=== PATIENT | male | born 1935 | race Caucasian/White ===

== ENCOUNTER 2016-12-04 15:17 | Inpatient (IN) ==
--- NOTE | 2016-12-04 16:16 | Diag Imaging Result Document ---
PROCEDURE NAME: CHEST-2 VIEWS - 12/04/2016 CHEST X-RAY 2 VIEWS: COMPARISON: 07/29/2016. FINDINGS: There is a significant alveolar infiltrate in the left lower lobe. Heart size is normal. No pneumothorax or pleural effusion. IMPRESSION: Left lower lobe infiltrate/pneumonia. Findings were discussed with Cassie Celis by telephone.
[2016-12-04] MEDS ORDERED: PREVNAR 13 IM ONE (17:50)
[2016-12-04] MEDS ORDERED: PNEUMOVAX 23 IM ONE (17:55)
[2016-12-04] MEDS ORDERED: TYLENOL PO PRN (17:57)
--- NOTE | 2016-12-04 18:19 | HISTORY AND PHYSICAL ---
HISTORY OF PRESENT ILLNESS: Mr. Clark has a past medical history apparently of a little dementia. He has an abdominal aortic aneurysm which they have been following. A former patient Dr. Manrique's. He has osteoarthritis. He has been in his usual good state of health until about a week ago, maybe 2 weeks ago, and they have noticed that he has had increased work of breathing, increased coughing, and he has not been eating or drinking much. His is going through therapy for B-cell lymphoma and that has been pretty hard on him. ALLERGIES: No known drug allergies. FAMILY HISTORY: He has a large family, 1 of 11 children. History of diabetes. History of coronary artery disease. History of kidney cancer and history of parkinsonism I think in a couple members. SOCIAL HISTORY: Occasional wine. Quit smoking about 15 years ago. REVIEW OF SYSTEMS: General: No weight gain or loss. No fever that they know of, but the family feels like he has lost some weight. HEENT: Unremarkable. Respiratory: Increased work of breathing in the last 2 weeks. Feels like a little increased dyspnea on exertion. He does not describe any orthopnea or paroxysmal nocturnal dyspnea. Cardiovascular: No chest pain or tachy palpitation. GI/: No gross hematuria or dysuria. PHYSICAL EXAMINATION: VITAL SIGNS: Temperature 98.5 degrees, pulse 105, respirations 18, blood pressure 122/68. HEENT: Pupils equal and round. LUNGS: Clear in all lung melendrez. CARDIOVASCULAR: Regular rate without murmur or S3. ABDOMEN: Soft. SKIN: Warm and dry. IMAGING STUDIES: Chest x-ray, left lower lobe infiltrate pneumonia. ASSESSMENT AND PLAN: 1. Left lower lobe pneumonia. He presents with some underlying COPD. Quit smoking about 15 years ago. Plan to admit. We will give him some bronchodilators and supplemental O2, probably some IV Solu-Medrol. I will put him on Rocephin 1 g daily. 2. Appears to have a little bit of volume contraction. We will check his lab work. 3. History of abdominal aortic aneurysm so we will check an ultrasound and see, he has not had that followed up in a while. 4. Some cognitive decline, early dementia. 5. He has had a history of cataracts. 6. Apparently has had a gastrectomy years ago for ulcer. cc: Moises Yarbrough MD
[2016-12-04] MEDS: SOLU-MEDROL IV SCH (18:42)
[2016-12-04] MEDS: NS 1,000 ML IV SCH (18:42)
[2016-12-04] MEDS: ROCEPHIN 1 GM/NS 50 ML IV SCH (18:43)
[2016-12-04] MEDS: DUONEB (A & A) INH PRN ×2 (20:20→23:20)
[2016-12-04] MEDS: VITAMIN B-12 PO SCH (21:25)
[2016-12-04] MEDS: LIPITOR PO SCH (21:26)
[2016-12-04] MEDS: LOTENSIN PO SCH (21:26)
[2016-12-04] MEDS: RAZADYNE ER PO SCH (22:03)
[2016-12-05] MEDS: SOLU-MEDROL IV SCH ×3 (02:38→17:59)
[2016-12-05] MEDS: DUONEB (A & A) INH PRN ×6 (03:55→23:07)
[2016-12-05] MEDS: NS 1,000 ML IV SCH ×2 (05:36→18:00)
[2016-12-05 06:31] LABS: BASO% 0.1 % (0.0-0.8); HEMOGLOBIN 10.9 g/dL (14.0-18.0); IMM GRAN# 0.05 X1000 (0.0-0.04); IMM GRAN% 0.6 % (0.0-0.5); LYMPH# 0.33 X1000 (1.2-3.4); LYMPH% 3.7 % (20.5-51.1); MANUAL DIFF NEEDED? YES; MCH 31.4 PG (27-31); MCHC 32.1 g/dL (33-37); MONO# 0.26 X1000 (0.11-0.59); MONO% 2.9 % (1.7-9.3); MPV 9.7 FL (7.4-10.4); NEUT% 92.7 % (42.2-75.2); PLT 334 X1000 (130-400); RBC 3.47 XMIL (4.7-6.1)
[2016-12-05 06:58] LABS: MONO 4 % (1-9)
[2016-12-05 07:05] LABS: AGAP 13; ALBUMIN 2.8 g/dL (3.5-5.0); ALKALINE PHOSPHATASE 84 U/L (32-122); BUN 19 mg/dL (8-22); CALCIUM 8.6 mg/dL (8.8-10.2); CHLORIDE 103 mmol/L (98-107); COSMO 290; GOT 13 U/L (10-34); GPT 8 U/L (10-44); POTASSIUM 4.1 mmol/L (3.5-5.1); SODIUM 140 mmol/L (136-145); TCO2 24 mmol/L (25-35); TOTAL BILIRUBIN 0.54 mg/dL (0.20-1.00); TOTAL PROTEIN 6.3 g/dL (6.3-8.3)
[2016-12-05] MEDS: FOLIC ACID PO SCH (08:28)
--- NOTE | 2016-12-05 09:48 | Diag Imaging Result Document ---
PROCEDURE NAME: CHEST-2 VIEWS - 12/05/2016 TWO VIEWS OF THE CHEST: FINDINGS: There is COPD. There is ill-defined opacity present in the lingula. This is somewhat worse than on 12/04/2016. The abnormality was not present on 07/29/2016. IMPRESSION: Slight worsening of pneumonia in the left upper lobe.
--- NOTE | 2016-12-05 12:37 | PROGRESS NOTE ---
DATE: 12/05/2016 Mr. Clark feels better. He was sitting up reading the newspaper. His sister states she can see good improvement, breathing comfortably, ate most of his breakfast and about snf through his lunch when I saw him. OBJECTIVE: Vital Signs: Afebrile, pulse 78, respirations 14, blood pressure 127/55, pupils are equal, round, CVP less than 6 cm. Lungs: Clear anterolateral. Cardiovascular: Regular rate without murmur or S3. Abdomen: Soft. Skin is warm and dry. Good urine output. LABS: Were reviewed. White count 8950, hematocrit 34, platelet count 334,000, sodium 140, potassium 4.1, chloride 103, bicarb 24, BUN 19, creatinine 0.9. Liver enzymes: AST was 13, ALT was 8, albumin 2.8. Chest x-ray from this morning, slight worsening of pneumonia on the left upper lobe. ASSESSMENT AND PLAN: 1. Underlying COPD exacerbation. COPD with left lower lobe pneumonia. Former smoker. Continue present regimen, Rocephin 1 g daily, bronchodilator, supplemental O2, and IV Solu-Medrol. 2. Volume contraction that seems to have responded with IV fluids. Continue present IV fluids. 3. Abdominal aortic aneurysm. We will check an ultrasound before he leaves just to follow up. He has not had follow up on this in years. It is an abdominal aortic aneurysm formerly followed by Dr. Manrique. 4. Cognitive decline, early dementia. Seems to be much brighter today.
[2016-12-05] MEDS: ROCEPHIN 1 GM/NS 50 ML IV SCH (18:01)
[2016-12-05] MEDS: VITAMIN B-12 PO SCH (20:03)
[2016-12-05] MEDS: LOTENSIN PO SCH (20:03)
[2016-12-05] MEDS: RAZADYNE ER PO SCH (20:03)
[2016-12-05] MEDS: LIPITOR PO SCH (20:03)
[2016-12-06] MEDS: SOLU-MEDROL IV SCH ×3 (02:55→17:50)
[2016-12-06] MEDS: DUONEB (A & A) INH PRN ×5 (03:35→19:55)
[2016-12-06] MEDS: NS 1,000 ML IV SCH ×2 (04:52→14:45)
[2016-12-06] MEDS: FOLIC ACID PO SCH (09:50)
--- NOTE | 2016-12-06 14:19 | PROGRESS NOTE ---
DATE: 12/06/2016 Mr. Clark feels much better. He is eating his breakfast, ate just about all of it. Breathing comfortably, a lot stronger and no sign of distress. EXAM: Vital Signs: Stable, afebrile. Lungs: Clear anterolateral. Cardiovascular: Regular rhythm and rate without murmurs or S3. Abdomen: Soft. Skin: Warm and dry. ASSESSMENT AND PLAN: 1. Pneumonia, underlying COPD. His air and gas exchange looked good. Feels much better. Afebrile. Continue his bronchodilators and his antibiotics. 2. Nutrition looks good. Good p.o. intake. 3. General weakness. I think that is improved as well. cc: Moises Yarbrough MD
[2016-12-06] MEDS: ROCEPHIN 1 GM/NS 50 ML IV SCH (17:50)
[2016-12-06] MEDS: LIPITOR PO SCH (20:05)
[2016-12-06] MEDS: RAZADYNE ER PO SCH (20:05)
[2016-12-06] MEDS: VITAMIN B-12 PO SCH (20:05)
[2016-12-07] MEDS: LOTENSIN PO SCH (00:29)
[2016-12-07] MEDS: NS 1,000 ML IV SCH ×2 (00:31→07:08)
[2016-12-07] MEDS: SOLU-MEDROL IV SCH ×2 (03:04→10:07)
[2016-12-07] MEDS: DUONEB (A & A) INH PRN ×2 (03:41→08:16)
[2016-12-07 03:59] VITALS: BP 158/82
[2016-12-07] MEDS ORDERED: ATIVAN IV PRN (08:25)
[2016-12-07] MEDS: FOLIC ACID PO SCH (10:07)
--- NOTE | 2016-12-07 10:51 | DISCHARGE SUMMARY ---
ADMISSION DATE: 12/04/2016 DISCHARGE DATE: 12/07/2016 HISTORY OF PRESENT ILLNESS: Mr. Johnson has a medical history of underlying dementia, abdominal aortic aneurysm which we have been following. Former patient of Dr. Manrique. He has a history of osteoarthritis. Had been in usual good state of health until about a week prior to presentation, maybe 2 weeks ago. Noticed increased work of breathing, increased cough. Not eating or drinking much. His is going through therapy right now for B-cell lymphoma. That has been pretty hard on him. ALLERGIES: No known drug allergies. FAMILY HISTORY: Fairly unremarkable. HOSPITAL COURSE: 1. Admitted him with left lower lobe pneumonia and exacerbation of COPD. Received IV antibiotics, Rocephin 1 g daily, bronchodilators, and some IV Solu-Medrol. He seemed to show steady improvement and felt he was ready go home on 12/07/2016. We will let him go home on PO Levaquin for another 5 days. 2. A little bit of volume contraction and he was a little dry. IV fluids seemed to help him quite a bit. Next day, he was eating. Eating well and comfortable. 3. History of abdominal aortic aneurysm which he just following, set him up for an ultrasound as an outpatient. 4. Cognitive decline and dementia. He did have some sundowning and some confusion at night. 5. History of cataracts. 6. Status post gastrectomy years ago. [place] he was ready to go home on 12/07/2016. DISCHARGE MEDICATIONS: He will stop his Solu-Medrol. Ativan 0.5 mg q.4 will discontinue. He will continue his Razadyne 25 mg at bedtime, folic acid 1 mg daily, B12 2500 mcg at bedtime, Lotensin 10 mg at bedtime, Lipitor 20 mg at bedtime. FOLLOWUP: Follow up with Luz Elena Celis in a couple of weeks. cc: Moises Yarbrough MD
== END 2016-12-07 12:36 | disposition home or self-care (01) ==
LOC: RAD 15:17 → DIRADM 16:13 → 4N 16:37
PROVIDERS: ADMIT Emergency Medicine; ATTEND Emergency Medicine

== ENCOUNTER 2017-01-31 21:20 | Inpatient (IN) ==
[2017-01-31 22:16] LABS: BASO% 0.2 % (0.0-0.8); EOS# 0.09 X1000 (0.0-0.7); EOS% 0.3 % (0.0-10.0); HEMATOCRIT 40.4 % (42.0-52.0); HEMOGLOBIN 13.1 g/dL (14.0-18.0); IMM GRAN# 0.64 X1000 (0.0-0.04); IMM GRAN% 1.8 % (0.0-0.5); LYMPH% 3.4 % (20.5-51.1); MANUAL DIFF NEEDED? YES; MCH 31.9 PG (27-31); MCHC 32.4 g/dL (33-37); MCV 98.3 FL (81-99); MONO# 2.63 X1000 (0.11-0.59); MONO% 7.3 % (1.7-9.3); MPV 9.3 FL (7.4-10.4); PLT 412 X1000 (130-400); RBC 4.11 XMIL (4.7-6.1)
[2017-01-31 22:22] LABS: ALLEN TEST YES; BE 0.5 mmoll (-3.0-3.0); BLOOD TYPE ARTERIAL; DRAW SITE R BRACHIAL; METHB 1.6 % (0.0-1.5); MODALITY CANNULA; O2(CT) 17.4 mL/dL (15.0-23.0); PCO2(98.6) 37 mmHg (35-45); PO2(98.6) 83 mmHg (60-100); SAMPLE BLOOD; SAO2 98.1 % (95.0-100.0); pH(98.6) 7.43 (7.35-7.45)
[2017-01-31 22:22] LABS: AGAP 17; ALBUMIN 3.3 g/dL (3.5-5.0); ALKALINE PHOSPHATASE 131 U/L (32-122); BUN 16 mg/dL (8-22); CALCIUM 9.3 mg/dL (8.8-10.2); CHLORIDE 101 mmol/L (98-107); CK PROFILE 142 U/L (24-204); COSMO 278; GOT 37 U/L (10-34); GPT 21 U/L (10-44); POTASSIUM 5.1 mmol/L (3.5-5.1); SODIUM 137 mmol/L (136-145); TCO2 19 mmol/L (25-35); TOTAL BILIRUBIN 0.67 mg/dL (0.20-1.00); TOTAL PROTEIN 7.5 g/dL (6.3-8.3)
[2017-01-31 22:23] LABS: INR 1.02; PROTIME 10.7 Seconds (9.2-11.7); PTT 27.3 Seconds (22.0-36.0)
[2017-01-31 22:32] LABS: BANDS 3 % (0-1); LYMPHS 3 % (21-51); MONO 6 % (1-9)
[2017-01-31 23:04] LABS: URINE SOURCE CATH
[2017-01-31 23:06] LABS: BILIRUBIN URINE NEGATIVE (NEGATIVE); BLOOD URINE TRACE (NEGATIVE); COLOR YELLOW; GLUCOSE URINE NEGATIVE (NEGATIVE); LEUKOCYTES URINE NEGATIVE (NEGATIVE); NITRITE URINE NEGATIVE (NEGATIVE); PROTEIN URINE 50 mg/dL (NEGATIVE); TURBIDITY URINE CLEAR (CLEAR); UROBILINOGEN URINE 2 mg/dL (NORMAL)
[2017-01-31 23:16] LABS: UR AMPHETAMINES QUAL NONE DETECTED (NONE DETECT); UR BARBITUATES QUAL NONE DETECTED (NONE DETECT); UR BENZODIAZEPIN QUAL NONE DETECTED (NONE DETECT); UR CANNABINOIDS QUAL NONE DETECTED (NONE DETECT); UR COCAINE QUAL NONE DETECTED (NONE DETECT); UR METHADONE QUAL NONE DETECTED (NONE DETECT); UR OPIATES QUAL NONE DETECTED (NONE DETECT); UR OXYCODONE QUAL NONE DETECTED (NONE DETECT); UR PCP QUAL NONE DETECTED (NONE DETECT)
[2017-01-31 23:18] LABS: UR EPITHELIAL CELLS >10 /HPF (<10); URINE BACTERIA NEGATIVE /HPF; URINE CULTURE NEEDED? YES; URINE MICRO REVIEW NEEDED? YES
[2017-01-31 23:20] LABS: URINE CASTS GRANULAR PRESENT; URINE CRYSTALS NONE SEEN
[2017-01-31] MEDS ORDERED: ROCEPHIN 1 GM/NS 1 GM/50 ML IVPB IV ONE (23:34)
--- NOTE | 2017-01-31 23:35 | PROVIDER DOCUMENTATION ---
HPI-General Adult - General Chief Complaint: Fall Stated Complaint: fall Time Seen by Provider: 01/31/17 21:29 Source: patient Allergies/Adverse Reactions: Patient Allergies Allergy/AdvReac Type Severity Reaction Status Date / Time No Known Allergies Allergy Verified 12/04/16 17:46 Home Medications: Home Medication List Medication Instructions Recorded Confirmed Last Taken Type Atorvastatin Calcium [Lipitor] 20 mg PO HS 12/04/16 12/04/16 12/03/16 History BENAZEpril [Lotensin] 10 mg PO HS 12/04/16 12/04/16 12/03/16 History Cyanocobalamin/Cobamamide [B12 2,500 meq PO HS 12/04/16 12/04/16 Unknown History 5,000 Mcg Microlozenge] Folic Acid 1 mg PO DAILY 12/04/16 12/04/16 12/04/16 History Galantamine HBr [Razadyne ER] 24 mg PO HS 12/04/16 12/04/16 Unknown History Levofloxacin [Levaquin] 500 mg PO DAILY #5 tablet 12/07/16 Unknown Rx - History of Present Illness -Gen Adult Nature of Presenting Problems: Pt is a 81 y/o M c chief complaint of neck pain after a ground level fall today at home. Per pt's , he was standing in a utility closet and fell backwards. Pt has a h/o frequent falls due to dementia. Pt was admitted last month for PNA. Pt's states she was not able to get the pt up and he was complaining of neck and back pain. On arrival, pt is in minimal distress and is pleasantly confused (baseline per family). Review of Systems - Adult - REVIEW OF SYSTEMS - ADULT Constitutional: reports: no symptoms reported. denies: chills, fatique Eyes: reports: no symptoms reported. denies: blurred vision, double vision Ears, Nose, Mouth & Throat: reports: no symptoms reported. denies: ear pain, nose pain Cardiovascular: reports: no symptoms reported. denies: chest pain, orthopnea Respiratory: reports: no symptoms reported. denies: cough, shortness of breath Gastrointestinal: reports: no symptoms reported. denies: abdominal pain, nausea Genitourinary: reports: no symptoms reported. denies: dysuria, frequent UTI's Musculoskeletal: reports: bone pain, back pain, joint pain, joint swelling Integumentary: reports: no symptoms reported. denies: itching, rash Neurological: reports: no symptoms reported. denies: numbness, paresthesia Psychiatric: reports: no symptoms reported. denies: anxiety, emotional problems Endocrine: reports: no symptoms reported. denies: cold intolerance, heat intolerance Hematologic/Lymphatic: reports: no symptoms reported. denies: blood clots, low blood count Allergic/Immunologic: reports: no symptoms reported. denies: allergic reactions , food allergy All Other Systems: Reviewed and Negative Past History - Adult - PAST MEDICAL HISTORY-ADULT Review of Records: reports: Old Records Reviewed, Nursing Assessment Review, Medications Reviewed, Social history reviewed & non-contributory. Major Childhood Illnesses: reports: denies history Cardiovascular: reports: HTN Respiratory: reports: pneumonia Gastrointestinal: reports: denies history Obstetrical/Gynecological: reports: denies history Genitourinary: reports: denies history Musculoskeletal: reports: denies history Neurological: reports: dementia Endocrine/Immune: reports: denies history Other Conditions: reports: denies history - IMMUNIZATION STATUS Childhood Immunizations: See Nurse Assessment Flu Vaccine: See Nurse Assessment - FAMILY HISTORY Family History: reviewed, not pertinent Physical Exam-General - PHYSICAL EXAM-ADULT Initial Vital Signs Reviewed: Yes - CONSTITUTIONAL General Appearance: appears well, mild distress - EYES Eyes: PERRL/EOMI, pink conjunctivae - HEAD, EARS, NOSE, MOUTH & THROAT HENMT: normocephalic/atraumatic, moist mucous membranes, normal ENT inspection - NECK Neck: C-spine tenderness - RESPIRATORY Respiratory: chest non-tender, lungs clear, normal breath sounds - CARDIOVASCULAR Cardiovascular: normal peripheral pulses, regular rate, rhythm - GASTROINTESTINAL (ABDOMEN) Abdominal Exam: normal bowel sounds, non tender, soft - LYMPHATIC Lymphatic: no adenopathy - MUSCULOSKELETAL Back Exam: normal inspection, no CVA tenderness, no vertebral tenderness Extremity: tenderness (tenderness to R hip on movement of RLE) - SKIN Integumentary: normal color, normal turgor, warm/dry - NEUROLOGIC Neurologic: grossly normal, no motor/sensory deficits, other (mild confusion) - PSYCHIATRIC Psych/Mental Status: normal mood/affect, normal thought content, normal thought process, disoriented x 3 (mild confusion, baseline per family) Progress - PLAN OF CARE/RESULTS Progress/Plan/Lab Results: Vital Signs - 8 hr 01/31/17 21:28 05/27/17 23:00 Temperature 98.5 F Pulse Rate 126 H 124 H Respiratory Rate 24 27 H Blood Pressure 127/69 121/67 O2 Sat by Pulse Oximetry 95 99 Laboratory Results - last 24 hr 01/31/17 01/31/17 01/31/17 21:43 21:43 21:43 WBC 35.81 H RBC 4.11 L Hgb 13.1 L Hct 40.4 L MCV 98.3 MCH 31.9 H MCHC 32.4 L RDW Std Deviation 15.5 H Plt Count 412 H MPV 9.3 Immature Gran % (Auto) 1.8 H Neut % (Auto) 87.0 H Lymph % (Auto) 3.4 L Schuyler % (Auto) 7.3 Eos % (Auto) 0.3 Baso % (Auto) 0.2 Immature Gran # (Auto) 0.64 H Neut # (Auto) 31.17 H Lymph # (Auto) 1.20 Schuyler # (Auto) 2.63 H Eos # (Auto) 0.09 Baso # (Auto) 0.08 Segmented Neutrophils 87 H Band Neutrophils 3 H Lymphocytes 3 L Monocytes 6 Metamyelocytes 1.0 Toxic Granulation OCCASIONAL Poikilocytosis OCCASIONAL PT INR PTT (Actin FS) Specimen Type Sample Site pH pCO2 pO2 HCO3 Base Excess Oxyhemoglobin ABG O2 Sat (Calculated) ABG O2 Saturation ABG Carboxyhemoglobin ABG Methemoglobin Moises Test A-a O2 Difference Total Hemoglobin Lactate Liter Flow Blood Gas Modality FiO2 % Sodium 137 Potassium 5.1 Chloride 101 Carbon Dioxide 19 L Anion Gap 17 BUN 16 Creatinine 1.0 Estimated GFR/1.73 m2 > 60 BUN/Creatinine Ratio 16 Glucose 145 H Calculated Osmolality 278 Calcium 9.3 Total Bilirubin 0.67 AST 37 H ALT 21 Alkaline Phosphatase 131 H Creatine Kinase 142 Troponin T Total Protein 7.5 Albumin 3.3 L Globulin 4.2 Albumin/Globulin Ratio 0.8 Plasma Lactate Urine Source Urine Color Urine Turbidity Urine pH Ur Specific [place] Urine Protein Ur Glucose (Stick) Ur Ketones (Stick) Urine Blood Urine Nitrite Urine Bilirubin Urobilinogen Dipstick Urine Leukocytes Urine WBC (Auto) Urine RBC (Auto) U Epithel Cells (Auto) Urine Bacteria (Auto) Urine Crystals Small Round Cells Urine Casts Urine Yeast-like Cells Urine Opiates Screen Ur Oxycodone Screen Ur Methadone, Qual Ur Barbiturates Screen Ur Phencyclidine Scrn Ur Amphetamines Screen U Benzodiazepines Scrn Urine Cocaine Screen U Cannabinoids Screen Plasma/Serum Ethyl Alc 01/31/17 01/31/17 01/31/17 21:43 21:43 22:12 WBC RBC Hgb Hct MCV MCH MCHC RDW Std Deviation Plt Count MPV Immature Gran % (Auto) Neut % (Auto) Lymph % (Auto) Schuyler % (Auto) Eos % (Auto) Baso % (Auto) Immature Gran # (Auto) Neut # (Auto) Lymph # (Auto) Schuyler # (Auto) Eos # (Auto) Baso # (Auto) Segmented Neutrophils Band Neutrophils Lymphocytes Monocytes Metamyelocytes Toxic Granulation Poikilocytosis PT 10.7 INR 1.02 PTT (Actin FS) 27.3 Specimen Type ARTERIAL Sample Site R BRACHIAL pH 7.43 pCO2 37 pO2 83 HCO3 25.3 Base Excess 0.5 Oxyhemoglobin 95.1 ABG O2 Sat (Calculated) 17.4 ABG O2 Saturation 98.1 ABG Carboxyhemoglobin 1.50 ABG Methemoglobin 1.6 H Moises Test YES A-a O2 Difference 99.0 Total Hemoglobin 13.0 Lactate 1.80 Liter Flow 3.0 Blood Gas Modality CANNULA FiO2 % 32.0 Sodium Potassium Chloride Carbon Dioxide Anion Gap BUN Creatinine Estimated GFR/1.73 m2 BUN/Creatinine Ratio Glucose Calculated Osmolality Calcium Total Bilirubin AST ALT Alkaline Phosphatase Creatine Kinase Troponin T < 0.010 Total Protein Albumin Globulin Albumin/Globulin Ratio Plasma Lactate Urine Source Urine Color Urine Turbidity Urine pH Ur Specific [place] Urine Protein Ur Glucose (Stick) Ur Ketones (Stick) Urine Blood Urine Nitrite Urine Bilirubin Urobilinogen Dipstick Urine Leukocytes Urine WBC (Auto) Urine RBC (Auto) U Epithel Cells (Auto) Urine Bacteria (Auto) Urine Crystals Small Round Cells Urine Casts Urine Yeast-like Cells Urine Opiates Screen Ur Oxycodone Screen Ur Methadone, Qual Ur Barbiturates Screen Ur Phencyclidine Scrn Ur Amphetamines Screen U Benzodiazepines Scrn Urine Cocaine Screen U Cannabinoids Screen Plasma/Serum Ethyl Alc 01/31/17 01/31/17 01/31/17 22:32 22:50 22:50 WBC RBC Hgb Hct MCV MCH MCHC RDW Std Deviation Plt Count MPV Immature Gran % (Auto) Neut % (Auto) Lymph % (Auto) Schuyler % (Auto) Eos % (Auto) Baso % (Auto) Immature Gran # (Auto) Neut # (Auto) Lymph # (Auto) [place] # (Auto) Eos # (Auto) Baso # (Auto) Segmented Neutrophils Band Neutrophils Lymphocytes Monocytes Metamyelocytes Toxic Granulation Poikilocytosis PT INR PTT (Actin FS) Specimen Type Sample Site pH pCO2 pO2 HCO3 Base Excess Oxyhemoglobin ABG O2 Sat (Calculated) ABG O2 Saturation ABG Carboxyhemoglobin ABG Methemoglobin Moises Test A-a O2 Difference Total Hemoglobin Lactate Liter Flow Blood Gas Modality FiO2 % Sodium Potassium Chloride Carbon Dioxide Anion Gap BUN Creatinine Estimated GFR/1.73 m2 BUN/Creatinine Ratio Glucose Calculated Osmolality Calcium Total Bilirubin AST ALT Alkaline Phosphatase Creatine Kinase Troponin T Total Protein Albumin Globulin Albumin/Globulin Ratio Plasma Lactate 2.0 Urine Source CATH Urine Color YELLOW Urine Turbidity CLEAR Urine pH 6.0 Ur Specific [place] 1.020 Urine Protein 50 A Ur Glucose (Stick) NEGATIVE Ur Ketones (Stick) NEGATIVE Urine Blood TRACE A Urine Nitrite NEGATIVE Urine Bilirubin NEGATIVE Urobilinogen Dipstick 2 A Urine Leukocytes NEGATIVE Urine WBC (Auto) 10-20 A Urine RBC (Auto) 10-20 A U Epithel Cells (Auto) >10 A Urine Bacteria (Auto) NEGATIVE Urine Crystals NONE SEEN Small Round Cells Not Reportable Urine Casts GRANULAR PRESENT Urine Yeast-like Cells NONE SEEN Urine Opiates Screen NONE DETECTED Ur Oxycodone Screen NONE DETECTED Ur Methadone, Qual NONE DETECTED Ur Barbiturates Screen NONE DETECTED Ur Phencyclidine Scrn NONE DETECTED Ur Amphetamines Screen NONE DETECTED U Benzodiazepines Scrn NONE DETECTED Urine Cocaine Screen NONE DETECTED U Cannabinoids Screen NONE DETECTED Plasma/Serum Ethyl Alc Orders Category Date Time Status Apply C-Collar DIRECTED Care 01/31/17 21:48 Active Cardiac Monitoring DIRECTED Care 01/31/17 21:46 Active Finger Stick Blood Sugar (ED) DIRECTED Care 01/31/17 21:46 Active Oxygen Therapy- ED Nursing DIRECTED Care 01/31/17 21:46 Active Saline Loc NOW Care 01/31/17 21:46 Active CHEST-PORTABLE [RAD] Stat Exams 01/31/17 21:46 Taken HEAD/C-SPINE W/O CONTRAST [CT] Stat Exams 01/31/17 21:47 Taken LUMBAR SPINE W/O CONTRAST [CT] Stat Exams 01/31/17 23:14 Ordered PELVIS W/O CONTRAST [CT] Stat Exams 01/31/17 23:14 Ordered ABG [RESP] Routine Lab 01/31/17 22:12 Completed ALCOHOL BLOOD Stat Lab 01/31/17 21:43 Completed BLOOD CULTURE [BLDCUL] Stat Lab 01/31/17 22:32 Received CBC WITH ELECTRONIC DIFF [HEME] Stat Lab 01/31/17 21:43 Completed CK PROFILE [SP CHEM] Stat Lab 01/31/17 21:43 Completed COMPREHENSIVE METABOLIC PANEL [CHEM] Stat Lab 01/31/17 21:43 Completed LACTATE, PLASMA [CHEM] Stat Lab 01/31/17 22:32 Completed PROTIME WITH INR [COAG] Stat Lab 01/31/17 21:43 Completed PTT [COAG] Stat Lab 01/31/17 21:43 Completed TROPONIN T Stat Lab 01/31/17 21:43 Completed URINALYSIS W/POSS RFLX CULT-1 [URINALYSIS] Stat Lab 01/31/17 22:50 Completed URINE CULTURE [RM] Routine Lab 01/31/17 23:27 Received URINE DRUG SCREEN Stat Lab 01/31/17 22:50 Completed URINE MANUAL MICROSCOPIC [URINALYSIS] Stat Lab 01/31/17 22:50 Completed Rocephin 1 gm/Ns IV Now Med 01/31/17 23:34 Ordered CefTRIAXONE 1 GM/NS [Rocephin 1 gm/Ns] 1 gm in 50 ml IV NOW Pulse Oximetry Stat Oth 01/31/17 21:46 Active EKG [EKG] Stat Ther 01/31/17 21:46 Ordered Result Diagrams: 01/31/17 21:43 01/31/17 21:43 - XRAY 1 XRAY Study: Chest Impression: Abnormal - CT/MRI 1 CT Study: Cervical Spine, Head Impression: Normal 2 CT Study: Lumbar Spine Impression: Abnormal (L2 fx, L1 fx) 3 CT Study: Pelvis Impression: Abnormal (R inferior pubic ramus fx, superior pubic root fx) - CONSULTS/PCP/HOSPITALIST Notification #1 *Consult/PCP/Hospitalist*: Dr. Garcia (Hospitalist) Time Discussed: 00:43 Reason/Comments: will admit and consult ortho in am Departure - Departure Time of Disposition Decision: 00:38 DIAGNOSIS: Leukocytosis Qualifiers: Leukocytosis type: unspecified Qualified Code(s): D72.829 - Elevated white blood cell count, unspecified Fall Qualifiers: Encounter type: initial encounter Qualified Code(s): W19.XXXA - Unspecified fall, initial encounter Inferior pubic ramus fracture Qualifiers: Encounter type: initial encounter Fracture type: closed Laterality: right Qualified Code(s): S32.591A - Other specified fracture of right pubis, initial encounter for closed fracture Fracture of superior pubic ramus Qualifiers: Encounter type: initial encounter Fracture type: closed Laterality: right Qualified Code(s): S32.511A - Fracture of superior rim of right pubis, initial encounter for closed fracture Compression fracture of L1 lumbar vertebra Qualifiers: Encounter type: initial encounter Fracture type: closed Qualified Code(s): S32.010A - Wedge compression fracture of first lumbar vertebra, initial encounter for closed fracture L2 vertebral fracture Qualifiers: Encounter type: initial encounter Fracture type: closed Fracture morphology: unspecified fracture morphology Qualified Code(s): S32.029A - Unspecified fracture of second lumbar vertebra, initial encounter for closed fracture Disposition: ADMITTED INPATIENT 09 Certified Medical Emergency: Emergent Condition: Stable Referrals and Follow-Ups: Maddy Celis CRNP [Primary Care Provider] - - Critical Care Note This patient required my direct & personal management of CC.: No Attestation - Physician/ TAMIA Attestation Patient care was provided by Advanced Practice Provider:: Yes Advanced Practice Provider:: Jose Dupont Advanced Practice Provider documentation review:: The Mid-level provider documentation, treatment plan and medical decision making was reviewed by the physician who agrees with all treatment and medical decision making by the P.
--- NOTE | 2017-02-01 00:32 | ED EKG INTERP ---
This chart was entered by Hao Morales Scribe, acting as scribe for Kelvin Meraz MD. EKG Interpretation - EKG Time of EKG reading by physician:: 21:28 EKG Read and Signed by:: Kelvin Meraz EKG Interpretation (*Must complete 3 of following elements*): Abnormal ( Anteroseptal infarct, age undetermined) Rate: 127 Rhythm: Sinus tachycardia This chart was documented by the indicated scribe, (Hao Morales Scribe) and accurately reflects the services I performed and decisions made by me, Kelvin Meraz MD, as attested by the provider's signature.
[2017-02-01] MEDS ORDERED: MORPHINE IM ONE (00:37)
[2017-02-01] MEDS ORDERED: ZOFRAN IV ONE (00:37)
[2017-02-01] MEDS ORDERED: NS 1,000 ML IV SCH (03:37)
[2017-02-01] MEDS ORDERED: ZOFRAN IV PRN (03:37)
--- NOTE | 2017-02-01 03:53 | HISTORY AND PHYSICAL ---
CHIEF COMPLAINT: Fall. HISTORY OF PRESENT ILLNESS: This is a 81-year-old male who was last admitted to our service on 12/04/2016. At that time, he had a pneumonia with some underlying COPD, and was treated accordingly and discharged home. He comes back tonight after having a fall. He had a ground level fall at his home. Per the patient and , he was standing in a utility closet and fell backwards. He has had frequent falls related to his dementia. He complained about some neck and back pain. He did hit his head. Did not have a loss of consciousness. He was pleasant on the interview, answered most questions appropriately. He did have some confusion which was his baseline, according to the family at the bedside. A CT scan of his cervical spine and head was obtained, which were normal. His lumbar spine was abnormal with an L1 compression fracture, an L2 endplate fracture that appeared to be old. CT of his pelvis showed a right inferior pubic ramus fracture and a superior pubic root fracture, which were nondisplaced. On laboratory data, the patient also had an elevated white blood cell count of 35,000 with band neutrophils of 3. Chest x- ray showed no infiltrate. Urine was unremarkable. He will be admitted for further evaluation and treatment. PAST MEDICAL HISTORY: Hypertension, hyperlipidemia, dementia, and gastric ulcers. PREVIOUS SURGICAL HISTORY: Inguinal hernia repair, gastrotomy many years ago for ulcer, cataract surgery, colonoscopy. SOCIAL HISTORY: Lives with his . Did occasionally drink wine but has not in several years. Quit smoking roughly 15 years ago but did smoke for many years. No illicit drugs. FAMILY HISTORY: He is one of eleven children. Positive history of diabetes mellitus and coronary artery disease. Had a sister with kidney cancer. Some Parkinson's in a couple of family members also I believe. ALLERGIES: No known drug allergies. HOME MEDICATIONS: Medication list has not been reconciled. An order for nursing to reconcile home medications has been placed. REVIEW OF SYSTEMS: Fourteen point review of systems conducted with the patient. He complains of right-sided back and hip pain, mild neck pain, mild headache. He denied dizziness, shortness of breath, chest pain before fall. He has had a cough with sputum. However, no one in the family could tell me what color the sputum want was. All other systems were reviewed and found to be negative. PHYSICAL EXAMINATION: VITAL SIGNS: Temperature 98.5 degrees, pulse 124, respirations 27, blood pressure 121/67, oxygen saturation 99% on room air. GENERAL: This is a pleasantly confused, 81-year-old male. He is alert and oriented to person, place, and situation. Disoriented to time. This is his baseline. He is in no acute distress. HEENT: Head is atraumatic, normocephalic. Pupils equal, round, reactive to light. Extraocular eye movement intact. Sclerae are anicteric. Conjunctivae are pink. Oral mucosa is mildly dry. NECK: Supple. Cervical spine tenderness noted on examination. Trachea is midline. CARDIOVASCULAR: S1-S2 appreciated. Regular rhythm. Sinus tachycardia on monitor. No murmurs, gallops, rubs. LUNGS: Clear to auscultation. No rhonchi, wheezes, or rales. Symmetrical rise and fall with respirations. ABDOMEN: Soft, nondistended, nontender. Bowel sounds present in all 4 quadrants, normoactive. No pulsatile mass. No organomegaly. EXTREMITIES: There are 2+ pedal pulses. No clubbing, cyanosis, or edema. The patient is reluctant to move the right lower extremity related to pain and prefers to lay flat also because of hip and back pain. Left lower extremity is neurovascularly intact. SKIN: Warm, dry, and intact. No acute lesions or rash. GENITOURINARY: Patient voids, otherwise deferred. NEUROLOGICAL: Oriented to person, place, situation. Disoriented to time. He is mildly confused but does have dementia. Cranial nerves 2-12 appear to be grossly intact. DIAGNOSTIC STUDIES: Chest x-ray, no acute disease. CT of the head and C-spine, NAD. CT of the pelvis showed a right inferior pubic ramus fracture, a right superior pubic root fracture. Lumbar spine CT showed an L1 compression fracture and an L2 endplate fracture that is likely old. LABORATORY DATA: WBC 35.81, hemoglobin 13.1, hematocrit 40.4, platelet count 412,000. Coagulation studies within normal limits. ABG within normal limits. Sodium 137, potassium 5.1, chloride 101, carbon dioxide 19, BUN 16, creatinine 1, glucose 145. Urine, 50 protein, otherwise unremarkable. Toxicology screen is negative. ASSESSMENT AND PLAN: 1. Leukocytosis with probable sepsis. No known bacterial source at this point. The patient had pneumonia and was treated around 2 months ago. We will cover with Levaquin and Rocephin at this time. Again, unsure of the bacterial source related to his leukocytosis. However, if the patient's white blood cell count remains elevated in the presence of antibiotics, we will consider consulting hematology to evaluate. 2. L1 compression fracture. We will treat with morphine as needed for pain. Orthopedist has been consulted. 3. Right inferior pubic ramus and right superior pubic root fractures which appear to be nondisplaced. Again, as noted above, we will give morphine and the orthopedist has been consulted to see patient in the morning. 4. Early dementia, aware. 5. Mild fluid volume depletion. We will give normal saline. Recheck laboratory data. 6. Further recommendations per patient's clinical course. Dictated by LUISITO Byrne for Eduardo Garcia MD cc: LUISITO Byrne MD
[2017-02-01] MEDS: MORPHINE IV SCH ×2 (04:57→08:12)
[2017-02-01] MEDS: LEVAQUIN 750 MG/D5W 750 MG/150 ML IVPB IV SCH (04:57)
[2017-02-01 05:19] LABS: MANUAL DIFF NEEDED? NO
[2017-02-01 05:32] LABS: BASO% 0.2 % (0.0-0.8); EOS# 0.07 X1000 (0.0-0.7); EOS% 0.4 % (0.0-10.0); HEMATOCRIT 36.9 % (42.0-52.0); HEMOGLOBIN 11.8 g/dL (14.0-18.0); IMM GRAN# 0.16 X1000 (0.0-0.04); IMM GRAN% 0.8 % (0.0-0.5); LYMPH# 1.35 X1000 (1.2-3.4); MCH 31.5 PG (27-31); MCV 98.4 FL (81-99); MONO% 9.4 % (1.7-9.3); MPV 9.2 FL (7.4-10.4); NEUT% 82.2 % (42.2-75.2); PLT 363 X1000 (130-400); RBC 3.75 XMIL (4.7-6.1)
--- NOTE | 2017-02-01 06:20 | Diag Imaging Result Doc PS360 ---
EXAM: CHEST-PORTABLE HISTORY: AMS TECHNIQUE: Semiupright portable AP COMPARISON: 12/11/2016 FINDINGS: The lungs are well expanded. The heart is not enlarged. The pulmonary vessels are small. There are several scattered granuloma. Residual tiny infiltrate or fibrosis in the lower left lung. No consolidation. No pleural effusions identified. IMPRESSION: Tiny residual infiltrate or fibrosis in the left base. Electronically signed by Santos Lucero 02/01/2017 6:17 AM
--- NOTE | 2017-02-01 06:50 | Diag Imaging Result Doc PS360 ---
EXAM: LUMBAR SPINE W/O CONTRAST HISTORY: Fall, lower lumbar pain TECHNIQUE: COMPARISON: None. FINDINGS: There is good alignment to the lumbar spine. No subluxation. There is a compression fracture to the L1 vertebra of approximately one third. Minimal retropulsion of the vertebral body. Mild spinal stenosis. Likely old superior endplate compression deformity to the L2 vertebra. No other fractures. Prominent atherosclerosis. IMPRESSION: Acute fracture to the L1 vertebra with an likely old superior endplate compression fracture to the L2 vertebral. A preliminary report was given at 12:10 AM Electronically signed by Santos Lucero 02/01/2017 6:47 AM
--- NOTE | 2017-02-01 08:36 | Diag Imaging Result Doc PS360 ---
EXAM: HEAD/C-SPINE W/O CONTRAST HISTORY: neck pain TECHNIQUE: COMPARISON: None. FINDINGS: Head: No parenchymal hemorrhage. No epidural or subdural hematoma. No subarachnoid hemorrhage. There is atrophy with chronic microvascular ischemic changes. No skull fracture. No sinus opacification. Cervical spine: There is good alignment of the cervical spine. No precervical soft tissue swelling. No subluxation. Mild degenerative changes are found in the mid cervical spine. No fracture. IMPRESSION: 1. Head: No hemorrhage. No injury. There is atrophy with chronic ischemic changes. 2. Cervical spine: No acute fracture. A preliminary report was given at 10:26 PM Electronically signed by Santos Lucero 02/01/2017 8:34 AM
--- NOTE | 2017-02-01 08:41 | Diag Imaging Result Doc PS360 ---
EXAM: PELVIS W/O CONTRAST HISTORY: fall, lower lumbar and pelvis pain TECHNIQUE: COMPARISON: None. FINDINGS: Each femoral head is well-positioned within its acetabulum. There are acute fractures to the proximal right superior pubic ramus and the mid right inferior pubic ramus. No widening of the pubic symphysis. No other fracture to the pelvis. IMPRESSION: Acute fractures to the right superior and inferior pubic rami. A preliminary report was given at 12:03 AM Electronically signed by Santos Lucero 02/01/2017 8:39 AM
[2017-02-01] MEDS: MORPHINE IV PRN (09:58)
--- NOTE | 2017-02-01 11:12 | CONSULTATION ---
DATE OF CONSULTATION: 02/01/2017 CHIEF COMPLAINT: History fall with L1 compression fracture. HISTORY OF PRESENT ILLNESS: This 81-year-old white male was examined in bed 473A. His sister-in- law is at bedside with him. The patient sustained a fall yesterday late evening at his house. He was in the utility closet, went back to reach for the door, missed the door, and unfortunately had a fall, landing directly on the lower back. He did hit his head but had no loss of consciousness. Currently he denies any chest pain or shortness of breath. He was transported to the emergency department. There he was found to have a compression fracture of the L1 vertebral body as well as a right superior and inferior pubic rami fracture. He was also found to have an elevated white blood cell count of 35,000. Patient currently states his pain is well controlled as long as he is laying flat. He does have a history of baseline dementia for which the [id number] states that he has okay long-term memory but short-term memory is poor. PAST MEDICAL HISTORY: Includes hypertension, hyperlipidemia, dementia, gastric ulcers. PAST SURGICAL HISTORY: Inguinal hernia repair, gastrotomy, cataract surgery, and colonoscopy. MEDICATIONS: Please see MAR. ALLERGIES: No known drug allergies. SOCIAL HISTORY: He currently lives with his who is battling cancer right now. No alcohol. Stopped tobacco use 15 years ago. No illicit drugs. FAMILY HISTORY: Positive for diabetes mellitus and heart disease. He has a sister with kidney cancer and Parkinson in a few family members. REVIEW OF SYSTEMS: Ten point review of systems negative except as stated otherwise above. PHYSICAL EXAMINATION: Vital Signs: Temperature 98.4 degrees, pulse 88, respirations 18, blood pressure 95/56, O2 saturation is 90% on room air. General: Currently he is alert oriented to person and place. HEENT: His head is normocephalic, atraumatic. Eyes: Pupils equal, round, react to light and accommodation. Extraocular muscles intact bilaterally. Ears: No otalgia or otorrhea. Throat is not injected. Neck: Supple. Trachea is midline. Cardiovascular: Regular rate and rhythm. Respiratory: No distress noted. Chest rises equal bilaterally. Abdomen: Soft, nontender. Musculoskeletal: Patient has some pain with internal and external rotation of the right hip. Leg lengths are symmetric. His compartments are soft. He is able to flex and extend the knees and ankles. She has 5/5 strength with plantar flexion and dorsiflexion. Neurological: He is grossly neurologically intact. Cranial nerves 2 through 12 are grossly intact bilaterally. He has 5/5 strength of the upper and lower extremities. He does have pain in the right lower extremity with strength testing. IMPRESSIONS: 1. L1 compression fracture status post fall. 2. Right superior and inferior pubic rami fracture. 3. Dementia. PLAN/RECOMMENDATIONS: In regards to the L1 compression fracture, I recommend the patient be treated in a thoracolumbosacral orthosis. He will need the TLSO brace on when he is up out of bed. Will also need proper pain control and physical therapy once the brace has been obtained. In regards to the right superior and inferior pubic rami fracture, I am okay with toe-touch weightbearing to the right lower extremity. I will continue to follow along. Thank you for allowing me to participate in the care Jose Clark. cc: Marco Mello,
[2017-02-01] MEDS: NS 1,000 ML IV SCH ×2 (13:56→15:26)
--- NOTE | 2017-02-01 14:17 | Diag Imaging Result Doc PS360 ---
EXAM: CT THORAX W/O CONTRAST HISTORY: pneumonia TECHNIQUE: Dose reduction protocol COMPARISON: Portable chest from 01/31/2017 FINDINGS: Minimal right posterior pleural thickening. No prominent effusions. No cardiomegaly. Prominent atherosclerosis. Small mediastinal lymph nodes. Scattered calcified granuloma. Emphysema with apical pleural thickening. No consolidation. Mild increased interstitial markings inferiorly believed to be fibrosis. IMPRESSION: 1.Emphysema 2.Apical pleural thickening with fibrosis 3.No pneumonia Electronically signed by Santos Lucero 02/01/2017 2:14 PM
--- NOTE | 2017-02-01 14:27 | PROGRESS NOTE ---
DATE: 02/01/2017 SUBJECTIVE: Today Mr. Clark refers to be doing a lot better. Has already been seen by Orthopedics and a corset over the thorax has been applied on him. OBJECTIVE: Vital signs: Blood pressure is 95/56, pulse of 88, respirations 18 , temperature is 98.4 degrees. General: Mr. Clark is a 81-year-old male. He was in bed. Did not seem to be in any remarkable distress. HEENT: Mucosa is pink and moist. Neck : Supple. Chest: Air entry is bilaterally reduced. There is some faint distant bilateral wheezing in expiration. Cardiovascular: Regular rate and rhythm. Abdomen: Soft, nontender. Extremities: No pedal edema. TIRE BUFFER: Patient is alert. He is oriented to person and to time but disoriented to place. He does have some residual resting tremor. LABORATORY DATA: WBC is 19.16, hemoglobin is 11.8, platelet count of 365,000. Chemistry is reviewed from yesterday. There is none today. Vitamin D level is 8.6. Imaging studies have been reviewed. A pelvic CT scan did show acute fractures to the right superior and inferior pubic rami, lumbar C-spine also showed acute fracture of L1 vertebra with likely an old superior endplate compression fracture to L2. ASSESSMENT: 1. Acute L1 compression fracture and right inferior pubic ramus and right superior pubic root fractures. This is all status post ground level fall. According to the story patient lost his balance and fell sustaining all these fractures. Has already been evaluated by orthopedics and there is no indication for surgical intervention. The patient will continue physical rehabilitation, continue applying the thoracic corset and get the patient to rehab. 2. Dehydration with hemoconcentration. Patient will continue with the current IV fluids for adequate hydration. 3. Bronchospasms. I think patient has an underlying chronic obstructive pulmonary disease that has not been diagnosed. We would do some breathing treatment p.r.n., will also do incentive spirometer, I will cut back on the fluids just to make sure it is not contributing to overloading of the lungs. Will continue with antibiotic, add low dose steroid. 4. Early dementia. Patient does have a residual resting tremor, has seborrhea. I think he has an underlying Parkinson disease. I will start him on a very low dose levodopa/carbidopa. 5. Vitamin D deficiency. Vitamin D level is 8.6, we will go ahead and replace this. So in general I think Ms. Clark is relatively stable. We are going to continue with physical rehabilitation, get a social work consult for rehab placement. review CT report and treat accordingly. cc: Suleiman Romo MD MTDD
[2017-02-01] MEDS: SOLU-MEDROL IV SCH ×3 (15:24→21:56)
[2017-02-01] MEDS: ALBUTEROL NEB INH PRN ×2 (15:50→19:02)
[2017-02-01] MEDS: SINEMET 25/100 PO SCH (21:04)
[2017-02-02] MEDS ORDERED: ROCEPHIN 1 GM/NS 1 GM/50 ML IVPB IV SCH (01:00)
[2017-02-02] MEDS: LEVAQUIN 750 MG/D5W 750 MG/150 ML IVPB IV SCH (02:37)
[2017-02-02] MEDS: SOLU-MEDROL IV SCH ×3 (05:49→21:31)
--- NOTE | 2017-02-02 07:48 | EKG Report ---
Test Performed on : 01/31/2017 9:28:48 PM Test Reason : AMS Blood Pressure : / mmHG Vent. Rate : 127 BPM Atrial Rate : 127 BPM P-R Int : 172 ms QRS Dur : 080 ms QT Int : 284 ms P-R-T Axes : -01 039 -16 degrees QTc Int : 412 ms Sinus tachycardia. Anteroseptal infarct , age undetermined Abnormal ECG No previous ECGs available Unconfirmed Result
[2017-02-02 08:19] LABS: BASO% 0.1 % (0.0-0.8); HEMATOCRIT 36.4 % (42.0-52.0); HEMOGLOBIN 11.8 g/dL (14.0-18.0); IMM GRAN# 0.08 X1000 (0.0-0.04); IMM GRAN% 0.6 % (0.0-0.5); LYMPH# 0.48 X1000 (1.2-3.4); LYMPH% 3.6 % (20.5-51.1); MANUAL DIFF NEEDED? YES; MCH 32.1 PG (27-31); MCHC 32.4 g/dL (33-37); MCV 98.9 FL (81-99); MONO# 0.82 X1000 (0.11-0.59); MONO% 6.1 % (1.7-9.3); MPV 9.2 FL (7.4-10.4); NEUT% 89.6 % (42.2-75.2); PLT 296 X1000 (130-400); RBC 3.68 XMIL (4.7-6.1)
[2017-02-02 08:30] LABS: AGAP 11; BUN 18 mg/dL (8-22); CHLORIDE 102 mmol/L (98-107); COSMO 279; POTASSIUM 4.7 mmol/L (3.5-5.1); SODIUM 138 mmol/L (136-145); TCO2 25 mmol/L (25-35)
[2017-02-02 09:03] LABS: LYMPHS 4 % (21-51); MONO 8 % (1-9)
[2017-02-02] MEDS: SINEMET 25/100 PO SCH ×2 (09:21→21:31)
[2017-02-02] MEDS: VITAMIN D PO SCH (09:22)
[2017-02-02] MEDS: MIRALAX PO SCH ×2 (09:28→21:30)
--- NOTE | 2017-02-02 09:46 | Diag Imaging Result Doc PS360 ---
EXAM: ABDOMEN FLAT/UPRIGHT HISTORY: constipation TECHNIQUE: Portable, two views COMPARISON: None. FINDINGS: No free air beneath the diaphragm. No bowel obstruction. No organomegaly. Mild scoliosis with degenerative spine changes. Prominent atherosclerosis. There are pelvic phleboliths. IMPRESSION: No acute abnormality identified. Electronically signed by Santos Lucero 02/02/2017 9:44 AM
[2017-02-02] MEDS ORDERED: PNEUMOVAX 23 IM ONE (10:30)
--- NOTE | 2017-02-02 15:35 | PROGRESS NOTE ---
DATE: 02/02/2017 SUBJECTIVE: The patient is resting comfortably in bed. He does complain of occasional back pain. OBJECTIVE: Vital signs: Temperature is 98.4, blood pressure 121/55, heart rate 97, respirations 18, O2 saturation is 93% on room air. General: This is an elderly male lying in bed, in no acute distress. HEENT: Normocephalic and atraumatic. Heart: S1, S2, no murmur. Lungs: Clear to auscultation, bilaterally. No crackles, no rales.. Abdomen: Positive bowel sounds. Soft, nontender and nondistended. Extremities: No edema, no cyanosis, no calf tenderness. Neurologic: The patient is alert and oriented. DIAGNOSTIC DATA: White blood cell count is 13, hemoglobin 11, hematocrit 36, platelets 296. Sodium is 138, potassium 4.7, chloride 102, CO2 is 24, BUN is 18, creatinine 0.9, glucose 121. ASSESSMENT AND PLAN: 1. Acute L1 compression fracture. Continue with the thoracic corset that is ordered. 2. Right inferior pubic ramus and right superior pubic roof fractures. The patient will require physical therapy. No surgical intervention recommended as per the orthopedic surgeon. 3. Leukocytosis, improved. 4. Vitamin D deficiency. Continue with vitamin D replacement. 5. DVT prophylaxis. Continue with SCDs. DISPOSITION: [facility] has been consulted for rehab placement for the patient. Continue with physical therapy. cc: Shellie Valladares MD
[2017-02-02] MEDS: ATIVAN IV PRN ×2 (18:18→21:59)
[2017-02-02] MEDS: ALBUTEROL NEB INH PRN (19:37)
[2017-02-02] MEDS: DULCOLAX PR SCH (21:31)
[2017-02-03] MEDS: MORPHINE IV PRN (00:35)
[2017-02-03] MEDS: LEVAQUIN 750 MG/D5W 750 MG/150 ML IVPB IV SCH (03:25)
[2017-02-03 05:47] LABS: HEMATOCRIT 34.7 % (42.0-52.0); HEMOGLOBIN 11.4 g/dL (14.0-18.0); IMM GRAN# 0.13 X1000 (0.0-0.04); IMM GRAN% 0.6 % (0.0-0.5); LYMPH# 0.57 X1000 (1.2-3.4); LYMPH% 2.6 % (20.5-51.1); MANUAL DIFF NEEDED? YES; MCH 31.6 PG (27-31); MCHC 32.9 g/dL (33-37); MCV 96.1 FL (81-99); MONO# 1.64 X1000 (0.11-0.59); MONO% 7.5 % (1.7-9.3); MPV 9.7 FL (7.4-10.4); NEUT% 89.3 % (42.2-75.2); PLT 298 X1000 (130-400); RBC 3.61 XMIL (4.7-6.1)
[2017-02-03] MEDS: SOLU-MEDROL IV SCH (06:11)
[2017-02-03 06:12] LABS: AGAP 13; BUN 23 mg/dL (8-22); CALCIUM 8.5 mg/dL (8.8-10.2); CHLORIDE 103 mmol/L (98-107); COSMO 283; POTASSIUM 4.4 mmol/L (3.5-5.1); SODIUM 139 mmol/L (136-145); TCO2 23 mmol/L (25-35)
[2017-02-03 06:48] LABS: BANDS 2 % (0-1); LYMPHS 2 % (21-51); MONO 8 % (1-9)
--- NOTE | 2017-02-03 08:17 | EKG Report ---
Test Performed on : 02/03/2017 07:56:08 AM Test Reason : tachycardia Blood Pressure : / mmHG Vent. Rate : 110 BPM Atrial Rate : 110 BPM P-R Int : 158 ms QRS Dur : 096 ms QT Int : 320 ms P-R-T Axes : 075 -15 029 degrees QTc Int : 433 ms Sinus tachycardia. Low voltage QRS Nonspecific ST abnormality Abnormal ECG When compared with ECG of 03-FEB-2017 07:55, (Unconfirmed) No significant change was found Confirmed by Kan Fuentes MD ([id number]) on 02/03/2017 8:21:34 AM
--- NOTE | 2017-02-03 08:18 | Diag Imaging Result Doc PS360 ---
EXAM: CHEST-PORTABLE HISTORY: dyspnea TECHNIQUE: AP portable at 0800 upright COMMENT: the inspiration is suboptimal. Considering this difference from the previous study of 01/31/2017, there has been no appreciable change. IMPRESSION: Stable chest. Poor inspiration. Electronically signed by Obed Frausto 02/03/2017 8:16 AM
--- NOTE | 2017-02-03 08:19 | PROGRESS NOTE ---
DATE: 02/03/2017 SUBJECTIVE: Jose Clark is a 81-year-old male who Dr. Mello saw over the weekend for compression fractures and superior and inferior rami fractures of the pelvis. He has no new complaints as far as the hip or pelvis are concerned. OBJECTIVE: He is a well-developed, well-nourished, male. He is cooperative with the exam. His pelvis and back are stable. His legs are neurovascularly intact. He does have a white count of 22,000. ASSESSMENT: Stable pelvis and back fractures. PLAN: From an orthopaedic standpoint he can be weightbearing as tolerated in his brace. Although, Dr. Mello has him touch-down weightbearing on the right so I guess we should keep him touch down weight-bearing. So he will be touch-down weightbearing in a TLSO brace and will follow up with Dr. Mello or Dr. Roderick Sosa, the spine surgeon, [place]. I will be available as needed. cc: Alcides Aguilera MD
[2017-02-03] MEDS: SINEMET 25/100 PO SCH (08:31)
[2017-02-03] MEDS: MIRALAX PO SCH ×2 (08:31→21:08)
[2017-02-03] MEDS: VITAMIN D PO SCH (08:31)
[2017-02-03] MEDS ORDERED: HALDOL IM ONE (08:58)
[2017-02-03] MEDS: 1/2 NS 1,000 ML IV SCH (09:17)
--- NOTE | 2017-02-03 12:39 | CONSULTATION ---
DATE OF CONSULTATION: 02/03/2017 REQUEST PHYSICIAN: The patient seen in consultation at the request of Dr. Valladares for evaluation of altered mental status. HISTORY OF PRESENT ILLNESS: Patient is a 81-year-old right-handed male with a history of a hypertension, hyperlipidemia and dementia who was admitted on 02/01/2017 status post fall suffering an L1 compression fracture and pelvic fractures. His white count was noted to be elevated at 35,000 upon admission. During his stay he has gradually become confused. He is not oriented. He is talking in the past. He does not realize he is in the hospital. He apparently has some baseline memory problems for the last 3 years, per his sister who is at bedside. In the chart he has a diagnosis of dementia. The patient's is not available today , she is getting chemotherapy. The sister reports that for 2-3 years he has had problems with his memory. He tells the same stories over and over. He basically stays at home most of the day so he is not getting lost in familiar places. She is not aware that he is losing items. On further questioning, she has noticed that his gait has been much slower lately. She believes that the memory problems started before the gait problems, and that the gait is more recent, say maybe in the last year. She is not aware that he has had repeated falls. She says his memory in the last year has gotten worse compared to the 2 years prior. She has not noted any other symptoms. The patient was hospitalized in November for pneumonia and the sister reported that he had a similar altered mental status during that time which resolved. The patient has gotten some p.r.n. morphine for pain, as well as p.r.n. Ativan. He is getting Levaquin. He has been given steroids while hospitalized and they were recently discontinued. No fevers or chills. He reports of a mild headache. Otherwise denies further symptoms. PAST MEDICAL HISTORY: 1. Hypertension. 2. Hyperlipidemia. 3. Dementia. 4. Gastric ulcers. 5. Inguinal hernia repair. 6. Gastrotomy years ago for an ulcer. 7. Cataract surgery. 8. Colonoscopy. SOCIAL HISTORY: He is and lives with his . His has leukemia and is on chemotherapy. Has not drunk alcohol in years. He quit smoking many years ago. No drug use. FAMILY HISTORY: Positive for coronary artery disease and diabetes. Sister with renal cancer. Possible Parkinson's disease. ALLERGIES: No known drug allergies. MEDICATIONS: 1. Morphine p.r.n. 2. Ativan p.r.n. 3. Levaquin. 4. Zofran otherwise noted. REVIEW OF SYSTEMS: The balance of 12 was conducted and is otherwise negative except that detailed in the HPI. PHYSICAL EXAMINATION: Vital Signs: Reviewed. He is afebrile. Pulse is elevated 116-135. Blood pressure 146/76. General: He is lying in bed flat on his back. Appears to be uncomfortable. He is reaching out into the air with his hands as if he is grabbing objects that are not there. Neck: Supple. No carotid bruits. Cardiovascular: Regular rate and rhythm. No murmurs appreciated. Lungs: Clear anteriorly. Abdomen: Soft, nontender. Extremities : Without edema. Mental Status Examination: He is awake and alert. He regards. Able to answer some questions, but other answers are clearly inappropriate. He does not know he is in the hospital. He knows it is 2016; he thinks it is May. He knows the 5th month of the year is January. Does not know the president. He thinks it is Destin Moe or Jayden Aponte. He continues to talk as though he is in the past. Talks about his working days. Able to name glasses. The frame of the glasses, watch, band of the watch. His pupils are equal, round, reactive to light. Ocular movements are intact. Superior gaze. Is intact. Face is symmetric with equal activation. Facial sensation is intact. Tongue is midline. Palate elevates symmetrically. Uvula is midline. Shoulder shrug is full. His strength appears to be intact and equal in all extremities. His reflexes are absent at the ankles. Otherwise 1 to 2+ and symmetric. His Babinski responses meet bilaterally. His [id number] is intact. His rapid alternating movements are slowed but accurate. He has a resting tremor noted to both hands which occasionally looks pill rolling. I did not test his gait due to his recent fractures. DIAGNOSTICS: His pelvis CT showed acute fractures of the right superior and inferior pubic rami. His lumbar CT showed acute fracture of the L1 vertebra. His head CT was personally reviewed and did not show any acute findings. There is a moderate amount of atrophy and also visible is chronic microvascular ischemic changes. His cervical spine CT did not show any fractures. His white count has been elevated since admission. Today it is 22,000. Hemoglobin 11, hematocrit 35, platelets 298,000. Neutrophil predominance. Two band neutrophils. Blood culture is negative thus far. The urine culture was negative. Sodium 139, potassium 4.4, BUN of 23 , creatinine 0.9, glucose 129. Calcium 8.5, magnesium 1.9. AST slightly high at 37, ALT 21, alkaline phosphatase elevated at 131, vitamin D 8.6. Urinalysis showed 10-20 whites, 10-20 reds, 50 protein. No bacteria seen. Toxicology was negative. ASSESSMENT AND PLAN: This is a 81-year-old right-handed male with some history of dementia for the past few years, hypertension, hyperlipidemia admitted s/p fall suffering pelvic and lumbar fractures who has developed gradual onset altered mental status during his hospitalization. His exam is nonfocal. He does have a resting tremor which inconsistently appears to be pill rolling. He is moving around quite a bit in the bed. 1. Encephalopathy superimposed on underlying dementia. This may be due to either toxic metabolic or infectious causes or medication side effects. His dementia would make him more susceptible to this as well as it would likely make his course more protracted. Agree with evaluating for underlying infections as his white count was actually elevated on admission. He apparently received some steroids while hospitalized which certainly could affect the white count, but would rule out infectious source first. The patient has gotten morphine p.r.n. and last night did get p.r.n. Ativan. These may certainly be contributing to his encephalopathy. I would recommend discontinuing the Ativan altogether if you are able. Limit morphine, as able. He is going for MRI today and I will look at the images when they are available. Consider routine EEG if no improvement. 2. If the patient has not had formal cognitive testing already, it would be reasonable to have him evaluated once his acute issues are resolved and he is back to his baseline self. This should be done in an outpatient setting. Thank you for this consultation. cc: Gertrude Luna MD MTDD
[2017-02-03] MEDS: TYLENOL PO PRN (13:57)
[2017-02-03] MEDS ORDERED: HALDOL IM PRN (15:46)
--- NOTE | 2017-02-03 16:10 | PROGRESS NOTE ---
DATE: 02/03/2017 SUBJECTIVE: The patient remains confused and agitated this morning. OBJECTIVE: Vital Signs: Temperature 98.4 degrees, blood pressure 113/84, heart rate 119, respirations 18, O2 saturations 95% on room air. General: This is a chronically ill-appearing, elderly male, lying in bed, in no acute distress. Head: Normocephalic, atraumatic. Heart: S1, S2. Normal. Tachycardic. Lungs: Clear to auscultation bilaterally. No wheezing. No rales. No rhonchi. Abdomen: Positive bowel sounds. Soft, nontender, nondistended. Extremities: No edema. No cyanosis. No calf tenderness. Neurological: Patient is awake but confused. He does move all 4 extremities. LABS: White blood cell count 22, hemoglobin 11, hematocrit 34, platelets 298, 000. Sodium 139, potassium 4.4, chloride 108, CO2 23, BUN 23, creatinine 0.9, glucose 129. ASSESSMENT AND PLAN: 1. Toxic encephalopathy versus delirium. The patient has been on steroids and has received Ativan. This may be contributing to the patient's confusion. We will discontinue these drugs and also discontinue the Sinemet at this time. Neurology has seen the patient and is currently following along. MRI of the brain is pending. 2. Acute L1 compression fracture. Continue with the thoracic corset. 3. Right inferior pubic ramus and right superior pubic ramus fractures. No surgical intervention is planned as per the orthopedic surgeon. The patient will be going to rehab upon discharge. 4. Vitamin D deficiency. Continue with vitamin D replacement. 5. Leukocytosis. The patient's white blood cell count did increase to 22,000 today. We will discontinue the IV steroids and monitor the patient's white count for improvement. The patient's chest x-ray is unremarkable. A urinalysis and urine culture are currently pending. 6. Deep vein thrombosis prophylaxis. Will start the patient on Lovenox. cc: Shellie Valladares MD MTDD
--- NOTE | 2017-02-03 16:23 | Diag Imaging Result Doc PS360 ---
EXAM: MRI BRAIN W/O CONTRAST INDICATION: Encephalopathy/delirium COMPARISON: 07/29/2016 FINDINGS: There is no evidence of acute infarct. There is patchy T2/FLAIR hyperintensity in the periventricular and subcortical white matter suggesting at least moderate microangiopathy, stable. There is no discrete intracranial mass, mass effect, or intracranial hemorrhage. The surrounding soft tissues and bony structures are essentially unremarkable. IMPRESSION: Stable chronic appearing white matter changes. No evidence of acute pathology. Electronically signed by Jose Dooley 02/03/2017 4:21 PM
[2017-02-03] MEDS: LOVENOX SUBQ SCH (16:35)
[2017-02-03 17:56] LABS: URINE SOURCE CATH
[2017-02-03 17:57] LABS: URINE MICRO REVIEW NEEDED? NO
[2017-02-03 18:06] LABS: BILIRUBIN URINE NEGATIVE (NEGATIVE); BLOOD URINE SMALL (NEGATIVE); COLOR YELLOW; GLUCOSE URINE NEGATIVE (NEGATIVE); LEUKOCYTES URINE NEGATIVE (NEGATIVE); NITRITE URINE NEGATIVE (NEGATIVE); PH URINE 5.5; PROTEIN URINE TRACE mg/dL (NEGATIVE); SP GRAVITY URINE 1.024; TURBIDITY URINE CLEAR (CLEAR); UROBILINOGEN URINE NORMAL (NORMAL)
[2017-02-03 18:10] LABS: UR EPITHELIAL CELLS <10 /HPF (<10); URINE BACTERIA NEGATIVE /HPF; URINE RBC <10 /HPF (<10); URINE WBC <10 /HPF (<10)
[2017-02-03] MEDS: DULCOLAX PR SCH (21:08)
[2017-02-04] MEDS: 1/2 NS 1,000 ML IV SCH ×2 (00:25→15:02)
[2017-02-04] MEDS: LEVAQUIN 750 MG/D5W 750 MG/150 ML IVPB IV SCH (02:47)
[2017-02-04 05:37] LABS: MANUAL DIFF NEEDED? NO
[2017-02-04 05:46] LABS: BASO% 0.1 % (0.0-0.8); EOS# 0.01 X1000 (0.0-0.7); EOS% 0.1 % (0.0-10.0); HEMATOCRIT 33.3 % (42.0-52.0); HEMOGLOBIN 11.1 g/dL (14.0-18.0); IMM GRAN# 0.12 X1000 (0.0-0.04); IMM GRAN% 0.7 % (0.0-0.5); LYMPH# 1.46 X1000 (1.2-3.4); LYMPH% 8.4 % (20.5-51.1); MCH 31.6 PG (27-31); MCHC 33.3 g/dL (33-37); MCV 94.9 FL (81-99); MONO# 2.14 X1000 (0.11-0.59); MONO% 12.4 % (1.7-9.3); MPV 9.7 FL (7.4-10.4); NEUT% 78.3 % (42.2-75.2); PLT 290 X1000 (130-400); RBC 3.51 XMIL (4.7-6.1)
[2017-02-04 06:13] LABS: AGAP 9; BUN 27 mg/dL (8-22); CALCIUM 8.4 mg/dL (8.8-10.2); CHLORIDE 102 mmol/L (98-107); COSMO 280; POTASSIUM 4.2 mmol/L (3.5-5.1); SODIUM 138 mmol/L (136-145); TCO2 27 mmol/L (25-35)
[2017-02-04] MEDS: ALBUTEROL NEB INH PRN ×3 (07:57→15:43)
[2017-02-04] MEDS: VITAMIN D PO SCH (09:44)
[2017-02-04] MEDS: MIRALAX PO SCH ×2 (09:45→22:14)
--- NOTE | 2017-02-04 10:30 | PROGRESS NOTE ---
DATE: 02/04/2017 PATIENT LOCATION: Room 473A. Mr. Clark is awake, alert, attentive. He has some generalized tremulousness but no other abnormal movement. Power remains good in the limbs with no focal findings on limited exam. He has baseline dementia with recent exacerbation associated with likely toxic/ metabolic disturbance. He had received lorazepam and that has been discontinued. That may be partial explanation for some of his tremulousness, but there is not evidence of more dramatic benzodiazepine withdrawal syndrome. His brain MRI this admission showed scattered white matter changes typical for age, stable since July 2016 scan. Nothing new to recommend from a neurologic standpoint today. cc: Melvi Mendez III, MD MTDD
[2017-02-04] MEDS: TYLENOL PO PRN (13:47)
--- NOTE | 2017-02-04 14:38 | PROGRESS NOTE ---
DATE: 02/04/2017 SUBJECTIVE: The patient is resting comfortably in bed. He seems less agitated today. OBJECTIVE: Vital Signs: Temperature 98.4 degrees, blood pressure 118/50, heart rate 104, respirations 17, O2 saturations 94% on 2 L nasal cannula. General: This is an elderly male, lying in bed, in no acute distress. Head: Normocephalic, atraumatic. Heart: S1, S2. Normal. Tachycardic. Lungs: Clear to auscultation bilaterally. No wheezing. No rales. Abdomen: Positive bowel sounds. Soft, nontender, nondistended. Extremities: No edema. No cyanosis. No calf tenderness. Neurologic: The patient is alert and oriented x3. LABS: White blood cell count 17, hemoglobin 11, hematocrit 33, platelets 290,000. Sodium 138, potassium 4.2, chloride 102, CO2 27, BUN 27, creatinine 0.8, glucose 93. ASSESSMENT AND PLAN: 1. Encephalopathy. Improved. We will continue to monitor the patient's mental status and avoid mind-altering medications. 2. Acute L1 compression fracture. We will continue with the thoracic corset. 3. Right inferior pubic ramus and right superior pubic ramus fracture. Continue with physical therapy. 4. Leukocytosis. Slowly improving. 5. Vitamin D deficiency. Continue on vitamin D replacement. 6. Deep vein thrombosis prophylaxis. Continue on Lovenox. 7. Disposition. Once the patient's mental status improves he will be discharged to rehab. cc: Shellie Valladares MD
[2017-02-04] MEDS: LOVENOX SUBQ SCH (15:03)
[2017-02-04] MEDS: DULCOLAX PR SCH (22:13)
[2017-02-05] MEDS: 1/2 NS 1,000 ML IV SCH (03:10)
[2017-02-05] MEDS: LEVAQUIN 750 MG/D5W 750 MG/150 ML IVPB IV SCH (03:10)
[2017-02-05] MEDS: TYLENOL PO PRN (03:15)
[2017-02-05 05:24] LABS: MANUAL DIFF NEEDED? NO
[2017-02-05 05:35] LABS: BASO% 0.1 % (0.0-0.8); EOS# 0.08 X1000 (0.0-0.7); EOS% 0.6 % (0.0-10.0); HEMATOCRIT 31.1 % (42.0-52.0); IMM GRAN# 0.12 X1000 (0.0-0.04); LYMPH# 1.34 X1000 (1.2-3.4); LYMPH% 10.7 % (20.5-51.1); MCH 31.2 PG (27-31); MCHC 32.2 g/dL (33-37); MCV 96.9 FL (81-99); MONO% 12.8 % (1.7-9.3); MPV 9.6 FL (7.4-10.4); NEUT% 74.8 % (42.2-75.2); PLT 286 X1000 (130-400); RBC 3.21 XMIL (4.7-6.1)
[2017-02-05 06:07] LABS: AGAP 7; BUN 23 mg/dL (8-22); CALCIUM 8.4 mg/dL (8.8-10.2); CHLORIDE 103 mmol/L (98-107); COSMO 281; POTASSIUM 4.6 mmol/L (3.5-5.1); SODIUM 139 mmol/L (136-145); TCO2 29 mmol/L (25-35)
[2017-02-05 07:42] VITALS: BP 124/74
[2017-02-05] MEDS: ALBUTEROL NEB INH PRN ×2 (07:58→11:11)
[2017-02-05] MEDS: VITAMIN D PO SCH (08:19)
[2017-02-05] MEDS: MIRALAX PO SCH (08:19)
--- NOTE | 2017-02-05 11:31 | DISCHARGE SUMMARY ---
ADMISSION DATE: 02/01/2017 DISCHARGE DATE: 02/05/2017 CONSULTATIONS: 1. Riaz Nieto with orthopedics. 2. Dr. Gertrude Luna with neurology. PERTINENT PROCEDURES: 1. Head and cervical spine CT showed head, no hemorrhage, and cervical spine no acute fracture. 2. Lumbar spine CT showed acute fracture to the L1 vertebra with a likely old superior endplate compression fracture of the L2 vertebra. 3. Pelvic CT showed acute fractures to the right superior and inferior pubic rami. 4. Chest CT shows this is a right apical pleural thickening with fibrosis, no pneumonia. 5. Brain MRI showed stable, chronic-appearing white matter changes. No evidence of acute pathology. DISCHARGE DIAGNOSES: 1. Toxic encephalopathy 2. Acute L1 compression fracture. Patient will continue with the thoracic corset. From orthopedic standpoint he can be touchdown weightbearing in his TLSO brace, and will follow up with Dr. Mello or Dr. Sosa, the orthopedic surgeon in [place]. 3. Right inferior pubic ramus and right superior pubic ramus fracture. Continue with physical therapy. 4. Leukocytosis 5. Vitamin D deficiency. 6. Dementia HOSPITAL COURSE: Mr. Clark is a 81-year-old male who carries a past medical history of hypertension, hyperlipidemia, dementia and gastric ulcers. Last admitted to our service on 12/04/2016 for pneumonia with some underlying COPD treated accordingly and discharged home. He came back to the ED after having a fall. He was found on the ground at home. Per his he was standing in a utility closet and fell backwards. He has had frequent falls related to his dementia. He complained about some neck and back pain. He did hit his head but he did not have any loss of consciousness. He answered most questions appropriately during the interview. He did have some confusion which was his baseline according to family members who are at the bedside. A CT scan of the cervical spine and head was obtained which were normal. Lumbar spine was abnormal with an L1 compression fracture and an L2 endplate fracture that appeared to be old. CT of the pelvis showed a right inferior pubic ramus and superior pubic ramus fracture which was nondisplaced. Lab worked showed an elevated white count of 35. Chest x-ray showed no infiltrate. Urine was unremarkable. The patient was admitted for orthopedic consult. Dr. Mello evaluated the patient. The patient will be on a TLSO brace when he is up out of bed. Pain control, physical therapy, and in regards to the right superior and inferior pubic rami fracture, he is okay with touch and go weightbearing to the right lower extremity. The patient underwent a brain MRI for encephalopathy deliriums and it just showed stable chronic appearing white matter changes. No evidence of acute pathology. They also got Neurology on board. They felt that he has returned to his baseline dementia with recent exacerbation associated likely with toxic metabolic disturbance. He had received some lorazepam, but that has been discontinued. He is back to his baseline. [facility] was contacted for rehab placement. The patient will be discharged to rehab today. VITAL SIGNS: Temperature is 98.1 degrees, heart rate 103, respirations 18, blood pressure 124/74, O2 is 97% on 2 L nasal cannula. DISCHARGE DIET: Mechanical soft. DISCHARGE MEDICATIONS: 1. Albuterol nebulizer 2.5 mg inhaled q.4 hours. 2. Lipitor 20 mg p.o. at bedtime. 3. Lotensin 10 mg p.o. at bedtime. 4. Dulcolax 10 mg p.o. at bedtime, hold for diarrhea. 5. Vitamin D3 2000 units p.o. daily. 6. B12 2500 mEq p.o. at bedtime. 7. Folic acid 1 mg p.o. daily. 8. Razadyne ER 25 mg p.o. at bedtime. 9. [place] 5/325, 1 each p.o. q.4 hours p.r.n. pain. 10. MiraLAX 17 g p.o. b.i.d. p.r.n. FOLLOW-UP: The patient is being discharged to rehab. He will need to continue to wear his TLSO brace when he is up out of bed. He will be touchdown weightbearing on the right lower extremity. Follow up with Dr. Mello or Dr. Sosa, the orthopedic surgeon in [place]. The patient can return to the ED for any worsening of symptoms. DISCHARGE TIME: 30 minutes Dictated by LUISITO Ta for Shellie Valladares MD cc: MD Luz Elena Amezquita CRNP MTDD
== END 2017-02-05 13:19 | disposition swing bed (61) ==
LOC: ED 21:20 → 4N 02-01 01:42 → SUATTDRO 02-01 01:42
PROVIDERS: ATTEND Internal Medicine